=== PATIENT | male | born 1950 | race Caucasian/White ===

== ENCOUNTER → 2017-08-05 | Outpatient (CLI) | payer MEDICARE ==
--- NOTE | 2017-08-05 10:19 | XR ---
EXAMINATION TYPE: XR foot complete LT DATE OF EXAM: 08/05/2017 COMPARISON: NONE HISTORY: Foot pain TECHNIQUE: Three views are submitted. FINDINGS: The osseous structures are intact. There is no acute fracture or dislocation. There is no phalanx f ourth digit likely congenital. Mild arthropathy of the first MTP. There are small calcaneal spurs at the Achilles insertion and plantar surface. IMPRESSION: 1. Calcaneal spurs. 2. First MTP joint arthropathy.
== END | disposition home or self-care (01) ==
LOC: RADXRMAIN 09:52
PROVIDERS: ATTEND Physician Assistant
DX: M77.32 Calcaneal spur, left foot (principal); M12.872 Other specific arthropathies, not elsewhere classified, left ankle and foot

== ENCOUNTER 2019-12-06 07:52 | Day surgery (SDC) | payer MEDICARE ==
[2019-12-01 16:26] VITALS: BMI 26.1
[~2019-12-06 07:52] MED LIST: LACTATED RINGERS 1,000 ML IV SCH; LIDOCAINE 1% 20 ML VIAL (10MG/ML) FOR IV START INTRADERMA PRN
[2019-12-06 08:17] VITALS: TEMP 98.6
--- NOTE | 2019-12-06 08:31 | P.GSHP ---
History of Present Illness H&P Date: 12/06/19 CHIEF COMPLAINT: Colon screen HISTORY OF PRESENT ILLNESS: The patient is a 69-year-old male who presents for colon screen. Lower endoscopy was offered for further evaluation and management. PAST MEDICAL HISTORY: Please see list. PAST SURGICAL HISTORY: Please see list. MEDICATIONS: Please see list. ALLERGIES: Please see list. SOCIAL HISTORY: No illicit drug use FAMILY HISTORY: No reports of Crohn disease or ulcerative colitis. REVIEW OF ORGAN SYSTEMS: CONSTITUTIONAL: No reports of fevers or chills. PHYSICAL EXAM: VITAL SIGNS: Stable GENERAL: Well-developed pleasant in no acute distress. HEENT: No scleral icterus. Extraocular movements grossly intact. Moist buccal mucosa. NECK: Supple without lymphadenopathy. CHEST: Unlabored respirations. Equal bilateral excursions. CARDIOVASCULAR: Regular rate and rhythm. Distal 2+ pulses. ABDOMEN: Soft, nontender, nondistended. MUSCULOSKELETAL: No clubbing, cyanosis, or edema. ASSESSMENT: 1. Colon screen. PLAN: 1. Recommend proceeding with a lower endoscopy Past Medical History Past Medical History: Coronary Artery Disease (CAD), Hyperlipidemia, Hypertension, Myocardial Infarction ([place]) Additional Past Medical History / Comment(s): gout Last Myocardial Infarction Date:: unknown History of Any Multi-Drug Resistant Organisms: None Reported Past Surgical History: Coronary Bypass/CABG, Heart Catheterization With Stent Additional Past Surgical History / Comment(s): QUAD CABG 2010. Colonoscopy Past Anesthesia/Blood Transfusion Reactions: No Reported Reaction Date of Last Stent Placement:: 2005 Smoking Status: Never smoker - Past Family History Mother Family Medical History: No Reported History Medications and Allergies Home Medications Medication Instructions Recorded Confirmed Type Aspirin 325 mg PO DAILY 01/21/15 12/06/19 History Atorvastatin [Lipitor] 80 mg PO DAILY 12/01/19 12/06/19 History Cyanocobalamin (Vitamin B-12) 1,000 mcg PO DAILY 12/01/19 12/06/19 History [Vitamin B-12] Losartan [Cozaar] 50 mg PO DAILY 12/01/19 12/06/19 History Metoprolol Tartrate [Lopressor] 25 mg PO DAILY 12/01/19 12/06/19 History Multivitamins, Thera [Multivitamin 1 tab PO DAILY 12/01/19 12/06/19 History (formulary)] Allergies Allergy/AdvReac Type Severity Reaction Status Date / Time No Known Allergies Allergy Verified 12/06/19 08:17 Surgical - Exam Vital Signs Temp Pulse Resp BP Pulse Ox 98.6 F 55 L 16 153/72 100 12/06/19 08:03 12/06/19 08:03 12/06/19 08:03 12/06/19 08:03 12/06/19 08:03
[2019-12-06] MEDS ORDERED: LIDOCAINE 1% INJ 10MG/ML (20 ML MDV) ONE (08:35)
[2019-12-06] MEDS ORDERED: PROPOFOL 10 MG/ML 20 ML VIAL IV ONE (08:35)
[2019-12-06 09:03] VITALS: PULSE 53
--- NOTE | 2019-12-06 09:09 | P.PCN ---
Date of Procedure: 12/06/19 Description of Procedure: PREOPERATIVE DIAGNOSIS: Colonoscopy screening POSTOPERATIVE DIAGNOSIS: Colonoscopy screening Cecal polyp Anal lesion Internal hemorrhoids, grade 3 External hemorrhoids, grade 3 OPERATION: Colonoscopy to the ileocecal valve and appendiceal orifice. Colonoscopy with cold forceps biopsy SURGEON: Briseida Becerra MD. ANESTHESIA: MAC. INDICATIONS: The patient is an 72-year-old male who presents for colon screening. Last colonoscopy 10-15 years ago. Benefits and risks were described and informed consent was obtained. DESCRIPTION OF PROCEDURE: The patient had undergone Suprep. He had been brought into the operating room and laid in the left lateral decubitus position. After adequate intravenous sedation, the rectum was examined with 2% lidocaine jelly. The prostate fossa was unremarkable. External hemorrhoids were encountered. The rectal tone was within normal limits. No lesions were palpated in the rectal vault. An Olympus colonoscope was advanced until the ileocecal valve and appendiceal orifice were clearly viewed. The prep was good. No sigmoid diverticulosis was encountered. Colonic polyp .was removed with cold forceps biopsy No evidence of focal colitis was found. Retroflexion of the scope demonstrated grade 3 internal hemorrhoids without active bleeding however moderate inflammation in the hyper keratosis of the anoderm was identified highly suspicious for carcinoma in situ. Secondary to location and need for operative intervention, biopsy was deferred. The colon was desufflated. The patient had tolerated the procedure well. Withdrawal time was over 6 minutes. FINDINGS: Aronchick preparation quality scale 2 (1-5) Internal hemorrhoids, grade 3 External hemorrhoids, grade 3 with hyperkeratosis and features of carcinoma in situ, operative biopsy advised No arteriovenous malformations. No sigmoid diverticulosis Removal of 1 polyp: - Cold forceps biopsy at cecum, 4 mm polyp. No focal colitis. RECOMMENDATIONS: Recommend biopsy of anoderm to evaluate for carcinoma in situ Plan - Discharge Summary Discharge Rx Participant: No New Discharge Prescriptions: No Action Aspirin 325 mg PO DAILY Multivitamins, Thera [Multivitamin (formulary)] 1 tab PO DAILY Losartan [Cozaar] 50 mg PO DAILY Metoprolol Tartrate [Lopressor] 25 mg PO DAILY Atorvastatin [Lipitor] 80 mg PO DAILY Cyanocobalamin (Vitamin B-12) [Vitamin B-12] 1,000 mcg PO DAILY Discharge Medication List Aspirin 325 mg PO DAILY 01/21/15 [History] Atorvastatin [Lipitor] 80 mg PO DAILY 12/01/19 [History] Cyanocobalamin (Vitamin B-12) [Vitamin B-12] 1,000 mcg PO DAILY 12/01/19 [History] Losartan [Cozaar] 50 mg PO DAILY 12/01/19 [History] Metoprolol Tartrate [Lopressor] 25 mg PO DAILY 12/01/19 [History] Multivitamins, Thera [Multivitamin (formulary)] 1 tab PO DAILY 12/01/19 [History] Follow up Appointment(s)/Referral(s): Briseida Becerra MD [STAFF PHYSICIAN] - 12/12/19 Patient Instructions/Handouts: Colorectal Polyps (GEN), Hemorrhoids (DC) Activity/Diet/Wound Care/Special Instructions: Rectal biopsy advised Discharge Disposition: HOME SELF-CARE
[2019-12-06 09:21] VITALS: BP 100/58; RESP 18
== END 2019-12-06 09:45 | disposition home or self-care (01) ==
LOC: ORWHC2ENDO 07:52
PROVIDERS: ATTEND Surgery Plastic and Reconstructive Surgery
DX: Z12.11 Encounter for screening for malignant neoplasm of colon (principal); K63.5 Polyp of colon; K64.2 Third degree hemorrhoids; K64.4 Residual hemorrhoidal skin tags; K62.89 Other specified diseases of anus and rectum; I25.2 Old myocardial infarction; I25.10 Atherosclerotic heart disease of native coronary artery without angina pectoris; I10 Essential (primary) hypertension; E78.5 Hyperlipidemia, unspecified; M10.9 Gout, unspecified; Z79.82 Long term (current) use of aspirin; Z79.899 Other long term (current) drug therapy; Z95.1 Presence of aortocoronary bypass graft
CPT/HCPCS: 88305; 45380; J2001; J2704

== ENCOUNTER → 2020-03-12 | Outpatient (CLI) | payer MEDICARE | END | disposition home or self-care (01) | LOC: LABWHC1 13:54 | PROVIDERS: ATTEND Surgery Plastic and Reconstructive Surgery | DX: U07.1 COVID-19 (principal) | CPT/HCPCS: 87635 ==

== ENCOUNTER 2020-03-14 11:42 | Day surgery (SDC) | payer MEDICARE ==
[2020-03-12 11:40] VITALS: BMI 26.7
[~2020-03-14 11:42] MED LIST changes: +DEXAMETHASONE SOD PHOSPHATE 10 MG/ML 1 ML VIAL IV ONE; +HYDROmorphone 0.5 MG/0.5 ML SYRINGE IVP PRN; -LACTATED RINGERS 1,000 ML IV SCH; -LIDOCAINE 1% 20 ML VIAL (10MG/ML) FOR IV START INTRADERMA PRN; +ONDANSETRON 4 MG/2 ML VIAL IVP ONE; +Pre Op ABX Message 1 EACH MISC MISCELLANE ONE
--- NOTE | 2020-03-14 11:49 | P.GSHP ---
History of Present Illness H&P Date: 03/14/20 CHIEF COMPLAINT: History of rectal discomfort. HISTORY OF PRESENT ILLNESS: Francisco Persaud is a 69-year-old male who is status post colonoscopy one week ago with abnormal growth along the perineum. He does have hemorrhoids. Because of the concern for potential anorectal cancer, he presents here today. He has history of blood in stools. He has irritation along the anus. PAST MEDICAL HISTORY: Please see list. PAST SURGICAL HISTORY: Please see list. MEDICATIONS: Please see list. ALLERGIES: Please see list. SOCIAL HISTORY: No illicit drug use FAMILY HISTORY: No reports of Crohn disease or ulcerative colitis. REVIEW OF ORGAN SYSTEMS: Additionally reports: CONSTITUTIONAL: No fevers or chills. No recent weight loss. EYES: Denies any trouble with vision. No glasses. HEENT: No difficulties with hearing. No nosebleeds. No difficulty swallowing. RESPIRATORY: Denies pneumonia. Denies any troubles with breathing or dyspnea on exertion. CARDIOVASCULAR: Denies any chest pain, palpitations, or recent heart attacks. Has hypertension. GASTROINTESTINAL: Denies fatty food intolerance. Denies change in bowel habits and gas bloat. GENITOURINARY: Denies any blood in urine or increased urinary frequency. NEUROLOGICAL: Denies any numbness or tingling along the distal extremities. No seizure disorders or headaches. MUSCULOSKELETAL: Denies any back pain, stiffness or joint arthritis. SKIN: No current skin cancer. No rash. PSYCHIATRIC: Denies current depression or suicidal thoughts. ENDOCRINE: Denies current thyroid disorders. Denies any blood sugar glucose intolerance. HEME/LYMPHATIC: Denies any lumps and bumps around the neck. No recent deep venous thrombosis. ALLERGY/IMMUNOLOGY: No immunoglobulin therapy. No immune deficiencies. BREAST: Denies current breast lumps, pain or nipple discharge. PHYSICAL EXAM: Patient is a 69-year-old male. CONSTITUTIONAL: Well developed and in no acute distress. Vitals reviewed. EYES: Conjuctivae without sclera icterus. Pupils are equally round and reactive to light. Extraocular movements grossly intact. HEAD, EARS, NOSE, THROAT: Moist buccal mucosa. Head is atraumatic, normocephalic. Hears conversational speech. No nasal drainage. NECK: Supple. No JV distention. No thyroidomegaly. RESPIRATORY: Non-labored respirations and equal bilateral excursions. No gross wheezes. CARDIOVASCULAR: Regular rate and rhythm. Extremities without moderate edema. Palpable 2+ radial pulses. ABDOMEN: No hepatomegaly. Soft. Non-tender. Nondistended. LYMPH: No neck lymphadenopathy. No axillary lymphadenopathy. MUSCULOSKELETAL: Nail and fingers with good capillary refill. SKIN: Warm and well perfused with good skin turgor. NEUROLOGIC: Cranial nerves I through XII grossly intact. Sensation upper and extremities intact. No focal or lateralizing signs. PSYCH: Appropriate affect. Alert and oriented to person, place and time. Displays appropriate insight. MEDICAL REPORTS: Colonoscopy report was consistent with unremarkable colon polyp. ASSESSMENT: 1. Internal/external hemorrhoids. 2. Squamous cell cancer in situ PLAN: 1. With symptomatic hemorrhoids, I have recommended hemorrhoidectomy, which can also serve as a biopsy for anorectal disease. Past Medical History Past Medical History: Coronary Artery Disease (CAD), Hyperlipidemia, Hypertension, Myocardial Infarction ([place]), Thyroid Disorder Additional Past Medical History / Comment(s): Hearing aids. Int and ext hemorrhoids. Last Myocardial Infarction Date:: unknown History of Any Multi-Drug Resistant Organisms: None Reported Past Surgical History: Coronary Bypass/CABG, Heart Catheterization With Stent Additional Past Surgical History / Comment(s): QUAD CABG 2010. Colonoscopy Past Anesthesia/Blood Transfusion Reactions: No Reported Reaction Date of Last Stent Placement:: 2005 Smoking Status: Never smoker - Past Family History Mother Family Medical History: No Reported History Medications and Allergies Home Medications Medication Instructions Recorded Confirmed Type Aspirin 325 mg PO DAILY 01/21/15 03/12/20 History Atorvastatin [Lipitor] 80 mg PO DAILY 12/01/19 03/12/20 History Cyanocobalamin (Vitamin B-12) 1,000 mcg PO Q48H 12/01/19 03/12/20 History [Vitamin B-12] Losartan [Cozaar] 50 mg PO DAILY 12/01/19 03/12/20 History Metoprolol Tartrate [Lopressor] 25 mg PO DAILY 12/01/19 03/12/20 History Multivitamins, Thera [Multivitamin 1 tab PO DAILY 12/01/19 03/12/20 History (formulary)] Levothyroxine Sodium [Synthroid] 50 mcg PO DAILY 03/12/20 03/12/20 History Allergies Allergy/AdvReac Type Severity Reaction Status Date / Time No Known Allergies Allergy Verified 03/12/20 11:18
[2020-03-14] MEDS ORDERED: NA PHOS,M-B/NA PHOS,DI-BA 133 ML ENEMA RECTAL STA (12:02)
[2020-03-14] MEDS ORDERED: metroNIDAZOLE-NS PMX 500 MG in SALINE 100 100ML.BAG IVPB ONE (12:07)
[2020-03-14] MEDS ORDERED: LIDOCAINE 1% (10MG/ML) FOR IV START INTRADERMA ONE (12:24)
[2020-03-14] MEDS: LACTATED RINGERS 1,000 ML IV SCH ×2 (12:24→17:54)
[2020-03-14] MEDS ORDERED: fentaNYL (PF) 50 MCG/ML 2 ML AMP ONE (13:42)
[2020-03-14] MEDS ORDERED: PROPOFOL 10 MG/ML 20 ML VIAL IV ONE (13:42)
[2020-03-14] MEDS ORDERED: MIDAZOLAM 2 MG/2 ML VIAL ONE (13:42)
[2020-03-14] MEDS ORDERED: BUPIVACAINE LIPOSOME/PF 1.3% 20 ML, SODIUM CHLORIDE 0.9% 10 ML MISCELLANE STA ×2 (13:56)
--- NOTE | 2020-03-14 15:26 | P.OP ---
Date of Procedure: 03/14/20 Description of Procedure: SURGEON: BRISEIDA BECERRA MD SENIOR LEAD JAVA DEVELOPER: NONE. PREOPERATIVE DIAGNOSES: 1. History of complicated internal hemorrhoids, grade 4. 2. History of complicated external hemorrhoids, grade 4. 3. History of rectal bleeding. 4. 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 History of complicated internal hemorrhoids, grade 4. 2. History of complicated external hemorrhoids, grade 4. 3. History of rectal bleeding. OPERATION: 1. Excision of internal and external hemorrhoids x 3 using LigaSure. ANESTHESIA: Spinal with Exparel mixture. ESTIMATED BLOOD LOSS: 1 mL. PATHOLOGY: 1. Internal, external hemorrhoidal complex x 3. FINDINGS: 1. Grade 4 internal/external hemorrhoidal cushion 3 excised. INDICATIONS: The patient is a 70-year-old female who presents with rectal bleeding including complicated internal/external hemorrhoids. He completed a colonoscopy. Findings on colonoscopy included possible squamous cell cancer in situ of the anus involving hemorrhoids and surgical intervention was advised. Surgical intervention was described for hemorrhoidectomy. Benefits and risks of the procedure, including bleeding, infection, incontinence, recurrent pain and recurrence of the hemorrhoids were discussed in detail. Informed consent was obt ained. DESCRIPTION: Patient was brought to the operating room. After spinal anesthetic and IV sedation, she was then repositioned the prone jackknife position. Next, the perineum and buttocks was spread apart using Mastisol. The perineum was then prepped and draped in standard sterile fashion using Betadine. Preoperative medication was confirmed. Prior to incision, a timeout protocol was confirmed with surgical team. Initially 2 fingers was easily inserted for dilation of the anus. Liquid stool within the anal vault was identified. A pre-existing anal stricture was confirmed which easily allowed one finger. A perineal block using Exparel was placed. Grade 4 hemorrhoids along all 3 quadrants were identified. Next, using a Ruperto-Talya anoscope, each hemorrhoidal cushion was addressed using a hand-held LigaSure after elevating each hemorrhoidal complex using forceps. Hemostasis was checked. At the end of the procedure, needle, sponge, and counts had been verified correct by the surgical aide. The patient then had tolerated the procedure well. Intraoperative findings including postoperative care instructions were discussed. Plan - Discharge Summary Discharge Rx Participant: No New Discharge Prescriptions: New metroNIDAZOLE [Flagyl] 500 mg PO BID #10 tab Ibuprofen [Motrin] 600 mg PO Q8HR PRN #30 tab PRN Reason: Pain HYDROcodone/APAP 5-325MG [[place] 5-325] 1 tab PO Q4HR PRN 3 Days #18 tab PRN Reason: Pain Continue Aspirin 325 mg PO DAILY Multivitamins, Thera [Multivitamin (formulary)] 1 tab PO DAILY Losartan [Cozaar] 50 mg PO DAILY Metoprolol Tartrate [Lopressor] 12.5 mg PO DAILY Atorvastatin [Lipitor] 80 mg PO DAILY Cyanocobalamin (Vitamin B-12) [Vitamin B-12] 1,000 mcg PO Q48H Levothyroxine Sodium [Synthroid] 50 mcg PO DAILY Discharge Medication List Aspirin 325 mg PO DAILY 01/21/15 [History] Atorvastatin [Lipitor] 80 mg PO DAILY 12/01/19 [History] Cyanocobalamin (Vitamin B-12) [Vitamin B-12] 1,000 mcg PO Q48H 12/01/19 [History] Losartan [Cozaar] 50 mg PO DAILY 12/01/19 [History] Metoprolol Tartrate [Lopressor] 12.5 mg PO DAILY 12/01/19 [History] Multivitamins, Thera [Multivitamin (formulary)] 1 tab PO DAILY 12/01/19 [History] Levothyroxine Sodium [Synthroid] 50 mcg PO DAILY 03/12/20 [History] HYDROcodone/APAP 5-325MG [[place] 5-325] 1 tab PO Q4HR PRN 3 Days #18 tab 03/14/20 [Rx] Ibuprofen [Motrin] 600 mg PO Q8HR PRN #30 tab 03/14/20 [Rx] metroNIDAZOLE [Flagyl] 500 mg PO BID #10 tab 03/14/20 [Rx] Follow up Appointment(s)/Referral(s): Briseida Becerra MD [STAFF PHYSICIAN] - 03/19/20 Patient Instructions/Handouts: *Sur[facility] - Hemorrhoidectomy Discharge Instructions, *[facility] - (Anesthesia) Discharge Instructions Outpatient Surgery, Hemorrhoidectomy (DC), Sitz Bath (DC), Metronidazole (By mouth) Activity/Diet/Wound Care/Special Instructions: Recommend sitz baths following bowel movements and twice daily and as needed No lifting over 10 pounds in 1 weeks until March 19. March shower. Diet as tolerated. No driving while on narcotics. Use stool softener for bowel movements to avoid constipation Complete course of antibiotics Expect bleeding after first bowel movement Expect increase pain 2-3 days following procedure which is normal Use Tylenol and ibuprofen or Aleve scheduled best pain relief on day 3 for at least 3 days Discharge Disposition: HOME SELF-CARE
[2020-03-14] MEDS: TAMSULOSIN 0.4 MG CAP.ER.24H PO STA ×2 (16:47→16:48)
[2020-03-14] MEDS ORDERED: HYDROcodone/APAP 5-325MG 1 EACH TAB PO PRN (18:27)
[2020-03-14] MEDS ORDERED: HYDROmorphone 1 MG/ML 1 ML SYRINGE IVP PRN (18:27)
[2020-03-14] MEDS ORDERED: NALOXONE 0.4 MG/ML 1 ML VIAL IV PRN (18:27)
--- NOTE | 2020-03-14 18:29 | P.PN ---
Progress Note - Text Progress Note Date: 03/14/20 Discharge health secondary to urinary retention
[2020-03-14] MEDS: KETOROLAC 30 MG/ML 1 ML VIAL IVP SCH (19:31)
[2020-03-14 20:59] VITALS: TEMP 97.6
[2020-03-14 21:54] VITALS: RESP 16
[2020-03-15] MEDS: KETOROLAC 30 MG/ML 1 ML VIAL IVP SCH ×3 (00:08→07:51)
[2020-03-15] MEDS: metroNIDAZOLE-NS PMX 500 MG in SALINE 1 100ML.BAG IVPB SCH ×2 (00:10→07:56)
[2020-03-15] MEDS ORDERED: ZOLPIDEM 10 MG TAB PO PRN (00:24)
[2020-03-15 05:18] VITALS: BP 125/64; PULSE 86
[2020-03-15] MEDS ORDERED: LEVOTHYROXINE 50 MCG TAB PO SCH (06:30)
[2020-03-15] MEDS ORDERED: LOSARTAN 50 MG TAB PO SCH (09:00)
[2020-03-15] MEDS ORDERED: ATORVASTATIN 80 MG TAB PO SCH (09:00)
[2020-03-15] MEDS ORDERED: METOPROLOL TARTRATE 12.5 MG TAB PO SCH (09:00)
--- NOTE | 2020-03-15 10:07 | P.DS ---
Providers Expected date of discharge: 03/15/20 Attending physician: Briseida Becerra Primary care physician: Josse Zee - Discharge Diagnosis(es) (1) Hemorrhoids Current Visit: Yes Status: Acute (2) Obstructive uropathy Current Visit: Yes Status: Acute (3) Anal lesion Current Visit: No Status: Acute Hospital Course: The patient is a 70-year-old gentleman who stayed overnight secondary to persistent urinary retention following spinal block which is to be expected. This morning, tolerating diet. He is voiding spontaneously. He denies any rectal pain. He has not had a bowel movement. He reports having multiple stool softeners at home. Discharge instructions including sitz baths described. Pain medication with [place], ibuprofen, Tylenol also reviewed. Flagyl also prescribed. Patient to follow-up in the office in 5 days. Expectation of occasional blood in stools also reviewed. Patient Condition at Discharge: Good Plan - Discharge Summary Discharge Rx Participant: No New Discharge Prescriptions: New metroNIDAZOLE [Flagyl] 500 mg PO BID #10 tab Ibuprofen [Motrin] 600 mg PO Q8HR PRN #30 tab PRN Reason: Pain HYDROcodone/APAP 5-325MG [[place] 5-325] 1 tab PO Q4HR PRN 3 Days #18 tab PRN Reason: Pain Tamsulosin [Flomax] 0.4 mg PO DAILY #10 cap.er.24h Acetaminophen Tab [Tylenol Tab] 1,000 mg PO Q6HR PRN #30 tablet PRN Reason: Pain Continue Aspirin 325 mg PO DAILY Multivitamins, Thera [Multivitamin (formulary)] 1 tab PO DAILY Losartan [Cozaar] 50 mg PO DAILY Metoprolol Tartrate [Lopressor] 12.5 mg PO DAILY Atorvastatin [Lipitor] 80 mg PO DAILY Cyanocobalamin (Vitamin B-12) [Vitamin B-12] 1,000 mcg PO Q48H Levothyroxine Sodium [Synthroid] 50 mcg PO DAILY Discharge Medication List Aspirin 325 mg PO DAILY 01/21/15 [History] Atorvastatin [Lipitor] 80 mg PO DAILY 12/01/19 [History] Cyanocobalamin (Vitamin B-12) [Vitamin B-12] 1,000 mcg PO Q48H 12/01/19 [History] Losartan [Cozaar] 50 mg PO DAILY 12/01/19 [History] Metoprolol Tartrate [Lopressor] 12.5 mg PO DAILY 12/01/19 [History] Multivitamins, Thera [Multivitamin (formulary)] 1 tab PO DAILY 12/01/19 [History] Levothyroxine Sodium [Synthroid] 50 mcg PO DAILY 03/12/20 [History] HYDROcodone/APAP 5-325MG [[place] 5-325] 1 tab PO Q4HR PRN 3 Days #18 tab 03/14/20 [Rx] Ibuprofen [Motrin] 600 mg PO Q8HR PRN #30 tab 03/14/20 [Rx] metroNIDAZOLE [Flagyl] 500 mg PO BID #10 tab 03/14/20 [Rx] Acetaminophen Tab [Tylenol Tab] 1,000 mg PO Q6HR PRN #30 tablet 03/15/20 [Rx] Tamsulosin [Flomax] 0.4 mg PO DAILY #10 cap.er.24h 03/15/20 [Rx] Follow up Appointment(s)/Referral(s): Briseida Becerra MD [STAFF PHYSICIAN] - 03/19/20 Patient Instructions/Handouts: *[facility] - Hemorrhoidectomy Discharge Instructions, *[facility] - (Anesthesia) Discharge Instructions Outpatient Surgery, Metronidazole (By mouth), Sitz Bath (DC), Hemorrhoidectomy (DC) Activity/Diet/Wound Care/Special Instructions: Recommend sitz baths following bowel movements and twice daily and as needed No lifting over 10 pounds in 1 weeks until March 19. May shower. Diet as tolerated. No driving while on narcotics. Use stool softener for bowel movements to avoid constipation Complete course of antibiotics Expect bleeding after first bowel movement Expect increase pain 2-3 days following procedure which is normal Use Tylenol and ibuprofen or Aleve scheduled best pain relief on day 3 for at least 3 days Discharge Disposition: HOME SELF-CARE
== END 2020-03-15 11:51 | disposition home or self-care (01) ==
LOC: OR 11:42 → 5NMEDONC 14:21 → OR 03-15 11:51
PROVIDERS: ATTEND Surgery Plastic and Reconstructive Surgery
DX: K64.3 Fourth degree hemorrhoids (principal); K62.0 Anal polyp; K62.6 Ulcer of anus and rectum; K64.4 Residual hemorrhoidal skin tags; I10 Essential (primary) hypertension; I25.10 Atherosclerotic heart disease of native coronary artery without angina pectoris; I25.2 Old myocardial infarction; E78.5 Hyperlipidemia, unspecified; E07.9 Disorder of thyroid, unspecified; Z95.1 Presence of aortocoronary bypass graft; Z95.5 Presence of coronary angioplasty implant and graft; Z79.82 Long term (current) use of aspirin; Z79.890 Hormone replacement therapy; Z79.899 Other long term (current) drug therapy
CPT/HCPCS: 46260; 88304; J2250; J1100; J2405; J3010; J1885 ×2; C9290; J2704

== ENCOUNTER → 2021-03-03 | Outpatient (CLI) | payer MEDICARE ==
[2021-03-03 20:48] LABS: Chol/HDL Ratio 3.79; LDL Cholesterol,Calculated 55.6 mg/dL (0.0-131.0); VLDL Calculation 36.4 mg/dL (5.00-40.00)
== END | disposition home or self-care (01) ==
LOC: LABWHC1 11:14
PROVIDERS: ATTEND Internal Medicine Interventional Cardiology
DX: E78.5 Hyperlipidemia, unspecified (principal); I25.10 Atherosclerotic heart disease of native coronary artery without angina pectoris
CPT/HCPCS: 36415; 80061; 82550; 84450; 84460

== ENCOUNTER → 2021-12-31 | Outpatient (CLI) | payer MEDICARE ==
--- NOTE | 2021-12-31 17:12 | US ---
EXAMINATION TYPE: US duplex aorta DATE OF EXAM: 12/31/2021 COMPARISON: NONE CLINICAL HISTORY: Z13.6 ENCOUNTER FOR SCREENING FOR CARDIOVASCULAR D. screening, h/o [place], bypass surge 2010 EXAM MEASUREMENTS: Abdominal Aorta: Proximal: 2.2 x 2.4cm Mid: 2.2 x 1.8cm Distal: 1.8 x 1.7cm Bifurcation: Rt = 1.1cm Lt = 1.0cm Normal caliber aorta IMPRESSION: 1. Aorta tapers normally without aneurysmal dilatation.
== END | disposition home or self-care (01) ==
LOC: RADUSWWP 07:31
PROVIDERS: ATTEND Family Medicine
DX: Z13.6 Encounter for screening for cardiovascular disorders (principal)
CPT/HCPCS: 93979

== ENCOUNTER → 2025-01-03 | Outpatient (CLI) | payer MEDICARE ==
[2025-01-03 19:28] LABS: Basophils # (A) 0.06 X 10*3/uL (0.00-0.10); Basophils % (A) 0.8 %; Eosinophils % (A) 5.6 %; HCT 43.6 % (39.6-50.0); HGB 13.8 g/dL (13.0-17.0); Lymphocytes # (A) 1.73 X 10*3/uL (0.90-5.00); Lymphocytes % (A) 24.3 %; MCH 29.2 pg (27.0-32.0); MCHC 31.7 g/dL (32.0-37.0); MCV 92.2 FL (80.0-97.0); Mean Platelet Volume 11.7 FL (9.5-12.2); Monocytes # (A) 0.63 X 10*3/uL (0.20-1.00); Monocytes % (A) 8.8 %; NRBC Per 100 WBC 0 X 10*3/uL (0.00-0.01); Neutrophils # (A) 4.29 X 10*3/uL (1.80-7.70); Neutrophils % (A) 60.4 %; Platelet Count 199 X 10*3/uL (140-440); RBC 4.73 X 10*6/uL (4.40-5.60); RDW 14.8 % (11.5-14.5); WBC 7.12 X 10*3/uL (4.50-10.00)
[2025-01-03 19:36] LABS: ALT 34 U/L (10-49); AST 24 U/L (14-35); Albumin 4.3 g/dL (3.8-4.9); Albumin/Globulin Ratio 1.34 Ratio (1.60-3.17); Alkaline Phosphatase 79 U/L (41-126); BUN/Creat Ratio 16.85 Ratio (12.00-20.00); Blood Urea Nitrogen 21.9 mg/dL (9.0-27.0); Calcium 9.5 mg/dL (8.7-10.3); Carbon Dioxide 26.2 mmol/L (21.6-31.8); Chloride 102 mmol/L (96-109); Chol/HDL Ratio 3.71 Ratio; Globulin 3.2 g/dL (1.6-3.3); Glucose 99 mg/dL (70-110); LDL Cholesterol,Calculated 67.5 mg/dL (0.0-131.0); Potassium 4.8 mmol/L (3.5-5.5); Prostate Specific Antigen 4.62 ng/mL (0.000-6.500); Sodium 138 mmol/L (135-145); Total Bilirubin 0.6 mg/dL (0.3-1.2); Total Protein 7.5 g/dL (6.2-8.2)
== END | disposition home or self-care (01) ==
LOC: LABWHC1 12:21
PROVIDERS: ATTEND Family Medicine
DX: Z12.5 Encounter for screening for malignant neoplasm of prostate (principal); E78.5 Hyperlipidemia, unspecified
CPT/HCPCS: 36415; 80053; 80061; 83036; 84153; 84443; 85025